=== PATIENT | female | born 1975 | race African-American/Black ===

== ENCOUNTER 2017-08-07 15:18 | Emergency (ER) | payer SELFPAY ==
[2017-08-07] MEDS ORDERED: Ibuprofen 800 MG TAB ONE (15:56)
== END 2017-08-07 16:49 | disposition home or self-care (01) ==
LOC: NAV ERS 15:18
DX: B34.9 Viral infection, unspecified (principal); J45.909 Unspecified asthma, uncomplicated
CPT/HCPCS: 87804; 99283

== ENCOUNTER 2017-09-11 17:54 | Emergency (ER) | payer SELFPAY | END 2017-09-11 18:12 | disposition home or self-care (01) | LOC: NAV ERS 17:54 | DX: H65.01 Acute serous otitis media, right ear (principal); J45.909 Unspecified asthma, uncomplicated | CPT/HCPCS: 99283 ==

== ENCOUNTER 2018-10-08 11:11 | Emergency (ER) | payer SELFPAY ==
[2018-10-08] MEDS ORDERED: Ketorolac Tromethamine 60 MG/2 ML VIAL ONE (11:56)
[2018-10-08] MEDS ORDERED: methylPREDNISolone Sod Succ/PF 125 MG/2 ML VIAL ONE (11:56)
== END 2018-10-08 12:20 | disposition home or self-care (01) ==
LOC: NAV ERS 11:11
DX: M54.42 Lumbago with sciatica, left side (principal); J45.909 Unspecified asthma, uncomplicated
CPT/HCPCS: 96372; J1885; J2930

== ENCOUNTER 2018-12-27 11:17 | Emergency (ER) | payer SELFPAY ==
[2018-12-27] MEDS ORDERED: Fluorescein Opthalmic Strip ONE (11:28)
== END 2018-12-27 11:45 | disposition home or self-care (01) ==
LOC: NAV ERS 11:17
DX: H10.9 Unspecified conjunctivitis (principal); J45.909 Unspecified asthma, uncomplicated
CPT/HCPCS: 99283

== ENCOUNTER 2019-10-23 12:16 | Emergency (ER) | payer SELFPAY ==
[2019-10-23 13:11] LABS: #Basophils 0.1 thou/uL (0.0-0.2); #Eosinphils 0.1 thou/uL (0.0-0.7); #Lymphocytes 2.1 thou/uL (1.20-3.40); #Monocytes 0.4 thou/uL (0.11-0.59); #Neutrophils 3.4 thou/uL (1.40-6.50); %Eosinophils 1.1 % (0.0-10.0); %Monocytes 6.3 % (0.0-10.0); %Neutrophils 55.7 % (42.0-75.0); Hemoglobin 12.3 g/dL (12.0-16.0); Mean Corpuscular HGB CONC 31.4 g/dL (32.0-36.0); Mean Corpuscular Hemoglobin 29.2 pg (27.0-31.0); Mean Platelet Volume 7.3 fL (7.4-10.4); Platelet Count 269 thou/uL (130-400); RBC Distribution Width 12.4 % (11.5-14.5); Red Blood Cell (RBC) Count 4.21 mill/uL (4.20-5.40)
[2019-10-23 13:25] LABS: ALT (SGPT) 13 U/L (8-55); AST (SGOT) 12 U/L (5-34); Albumin 3.7 g/dL (3.5-5.0); Alkaline Phosphatase 76 U/L (40-110); Anion Gap 14 mmol/L (10-20); BUN (Urea Nitrogen) 15 mg/dL (7.0-18.7); Bilirubin, Total 0.2 mg/dL (0.2-1.2); Calc. Creatinine Clearance 0 mL/min (70-130); Calcium 9.5 mg/dL (7.8-10.44); Carbon Dioxide 22 mmol/L (22-29); Chloride 106 mmol/L (98-107); Estimated GFR-MDRD 62; Globulin 3.9 g/dL (2.4-3.5); Glucose 405 mg/dL (70-105); Potassium 4.4 mmol/L (3.5-5.1); Protein, Total 7.6 g/dL (6.0-8.3); Sodium 138 mmol/L (136-145)
== END 2019-10-23 14:00 | disposition home or self-care (01) ==
LOC: NAV ERS 12:16
DX: I10 Essential (primary) hypertension (principal); R51 Headache; E11.65 Type 2 diabetes mellitus with hyperglycemia; M79.602 Pain in left arm; J45.909 Unspecified asthma, uncomplicated
CPT/HCPCS: 36415; 80053; 84484; 85025; 93005

== ENCOUNTER 2019-12-16 16:30 | Emergency (ER) | payer OTHER, SELFPAY ==
[2019-12-17 13:25] LABS: SARS-CoV-2 MS2 Positive; SARS-CoV-2 N Gene Positive; SARS-CoV-2 S Gene Positive; SARS-CoV-2 orf1ab Positive
== END 2019-12-16 17:31 | disposition home or self-care (01) ==
LOC: NAV ERS 16:30
DX: U07.1 COVID-19 (principal); E11.9 Type 2 diabetes mellitus without complications; I10 Essential (primary) hypertension; Z79.899 Other long term (current) drug therapy; Z79.84 Long term (current) use of oral hypoglycemic drugs
CPT/HCPCS: 87635; 99283; U0003

== ENCOUNTER 2021-11-21 14:03 | Emergency (ER) | payer MEDICAID, OTHER, SELFPAY | END 2021-11-21 14:57 | disposition home or self-care (01) | LOC: NAV ERS 14:03 | DX: J06.9 Acute upper respiratory infection, unspecified (principal); H69.81 Other specified disorders of Eustachian tube, right ear; H60.91 Unspecified otitis externa, right ear; R42 Dizziness and giddiness; R29.700 NIHSS score 0; E11.9 Type 2 diabetes mellitus without complications; I10 Essential (primary) hypertension | CPT/HCPCS: 99282 ==

== ENCOUNTER 2021-12-15 11:59 | Emergency (ER) | payer MEDICAID, SELFPAY ==
[2021-12-15 12:47] LABS: Bilirubin Negative (Negative); Blood, Urine Moderate (Negative); Clarity Cloudy (Clear); Glucose, Urine (Dipstick) >=1000 mg/dL (Negative); Ketone, Urine Negative (Negative); Leukocyte Trace (Negative); Nitrite Negative (Negative); Protein, Urine (Dipstick) Negative (Neg-Trace); Specific Gravity, Urine 1.025 (1.005-1.030); Urobilinogen 0.2 mg/dL (Less than 2)
[2021-12-15 12:53] LABS: Bacteria/HPF 1+ HPF (None Seen); RBC/HPF 0-3 HPF (0-3)
[2021-12-15 12:54] LABS: Other Microscopic Description 1+ POWDER CRYSTALS; Transitional Epithelial 0-3 HPF (None Seen)
[2021-12-15 13:15] LABS: Pregnancy Test - Urine (BHCG) Negative (Negative); Pregu Control Background? CLEAR/WHITE (CLR/WHITE); Pregu Control Bar Appear? YES (CONTROL BAR); Specific Gravity 1.025 (1.002-1.036)
== END 2021-12-15 13:29 | disposition home or self-care (01) ==
LOC: NAV ERS 11:59
DX: N30.00 Acute cystitis without hematuria (principal); E11.65 Type 2 diabetes mellitus with hyperglycemia; I10 Essential (primary) hypertension
CPT/HCPCS: 36416; 81003; 81015; 81025; 87086; 99283

== ENCOUNTER 2022-05-01 22:03 | Emergency (ER) | payer SELFPAY ==
[2022-05-01] MEDS ORDERED: Lidocaine 1% (PF) 30 ML VIAL ONE (22:15)
[2022-05-01] MEDS ORDERED: Ibuprofen 800 MG TAB ONE (22:23)
[2022-05-01] MEDS ORDERED: Sulfameth/Trimethoprim DS 800-160mg TAB ONE (22:23)
== END 2022-05-01 22:27 | disposition home or self-care (01) ==
LOC: NAV ERS 22:03
DX: L02.416 Cutaneous abscess of left lower limb (principal); E11.9 Type 2 diabetes mellitus without complications; I10 Essential (primary) hypertension
CPT/HCPCS: 10060; 87070; 87077; 87186; 87205; J2001

== ENCOUNTER 2022-08-25 12:35 | Emergency (ER) | payer SELFPAY ==
[2022-08-25 13:10] LABS: Bilirubin Negative (Negative); Blood, Urine Large (Negative); Clarity Slightly Cloudy (Clear); Glucose, Urine (Dipstick) >=1000 mg/dL (Negative); Ketone, Urine 40 mg/dL (Negative); Leukocyte Small (Negative); Nitrite Negative (Negative); Protein, Urine (Dipstick) Trace mg/dL (Neg-Trace); Urobilinogen 0.2 mg/dL (Less than 2); pH, Urine 5.5 (5.0-9.0)
[2022-08-25 13:16] LABS: Bacteria/HPF 2+ HPF (None Seen); Yeast-Budding 1+ HPF (None Seen)
[2022-08-25 14:01] LABS: Wet Prep Clue Cells Clue Cells Absent (None Seen); Wet Prep Trichomonas Trichomonas Absent (None Seen)
[2022-08-25] MEDS ORDERED: Acyclovir 400 mg Tablet ONE (14:02)
[2022-08-25] MEDS ORDERED: Fluconazole 100 MG TAB ONE (14:05)
[2022-08-25] MEDS ORDERED: Sulfameth/Trimethoprim DS 800-160mg TAB ONE (14:05)
[2022-08-27 09:02] LABS: GC by PCR *Indeterminate (NotDetected)
[2022-08-27 09:03] LABS: Chlamydia by PCR *Indeterminate (NotDetected)
== END 2022-08-25 14:22 | disposition home or self-care (01) ==
LOC: NAV ERS 12:35
DX: N76.2 Acute vulvitis (principal); B00.9 Herpesviral infection, unspecified; B37.31 Acute candidiasis of vulva and vagina; E11.9 Type 2 diabetes mellitus without complications; I10 Essential (primary) hypertension; Z79.84 Long term (current) use of oral hypoglycemic drugs
CPT/HCPCS: 81003; 81015; 87210; 87480; 87491; 87510; 87591; 87660; 99283

== ENCOUNTER 2022-09-25 19:14 | Emergency (ER) | payer SELFPAY ==
[2022-09-25] MEDS ORDERED: methylPREDNISolone Sod Succ/PF 125 MG/2 ML VIAL ONE (19:44)
[2022-09-25] MEDS ORDERED: Ipratropium/Albuterol 3 ML NEB ONE (19:44)
[2022-09-25] MEDS ORDERED: Azithromycin 250 MG TAB ONE (19:44)
== END 2022-09-25 20:38 | disposition home or self-care (01) ==
LOC: NAV ERS 19:14
DX: J06.9 Acute upper respiratory infection, unspecified (principal); E78.5 Hyperlipidemia, unspecified; I10 Essential (primary) hypertension; E11.9 Type 2 diabetes mellitus without complications; J45.909 Unspecified asthma, uncomplicated; Z79.84 Long term (current) use of oral hypoglycemic drugs
CPT/HCPCS: 71045; 87804; 96372; J2930; J7620

== ENCOUNTER 2022-12-16 20:21 | Emergency (ER) | payer OTHER ==
[2022-12-16] MEDS ORDERED: Ibuprofen 800 MG TAB ONE (21:24)
== END 2022-12-16 21:25 | disposition home or self-care (01) ==
LOC: NAV ERS 20:21
DX: M54.50 Low back pain, unspecified (principal); M54.2 Cervicalgia; M54.6 Pain in thoracic spine; I10 Essential (primary) hypertension; E11.9 Type 2 diabetes mellitus without complications; V43.62XA Car passenger injured in collision with other type car in traffic accident, initial encounter
CPT/HCPCS: 99284

== ENCOUNTER 2023-04-12 10:43 | Emergency (ER) | payer OTHER ==
[2023-04-12] MEDS ORDERED: Ibuprofen 800 MG TAB ONE (11:17)
[2023-04-12 11:20] LABS: Bilirubin Negative (Negative); Blood, Urine Negative (Negative); Glucose, Urine (Dipstick) >=1000 mg/dL (Negative); Ketone, Urine 15 mg/dL (Negative); Leukocyte Negative (Negative); Nitrite Negative (Negative); Protein, Urine (Dipstick) Negative (Neg-Trace)
[2023-04-12 11:27] LABS: Clarity Hazy (Clear)
[2023-04-12 11:28] LABS: Pregnancy Test - Urine (BHCG) Negative (Negative); Pregu Control Background? CLEAR/WHITE (CLR/WHITE); Pregu Control Bar Appear? YES (CONTROL BAR)
[2023-04-12 11:36] LABS: CAUTI Indications for Culture Dysuria,urgency,freq; Squamous Epithelial 0-3 HPF (0-3); WBC/HPF 0-3 HPF (0-3)
[2023-04-12 11:37] LABS: Urine Culture Reflex No No
== END 2023-04-12 11:53 | disposition home or self-care (01) ==
LOC: NAV ERS 10:43
DX: B37.31 Acute candidiasis of vulva and vagina (principal); I10 Essential (primary) hypertension; E11.9 Type 2 diabetes mellitus without complications
CPT/HCPCS: 81001; 81025; 99283

== ENCOUNTER 2023-11-23 19:03 | Emergency (ER) | payer OTHER ==
[2023-11-23] MEDS ORDERED: Ondansetron PF 4 MG/2 ML Vial ONE (19:27)
[2023-11-23] MEDS ORDERED: Sodium Chloride 0.9% 1,000 ML ONE (19:27)
[2023-11-23 19:52] LABS: Hematocrit 41.7 % (36.0-47.0); Hemoglobin 13.1 g/dL (12.0-16.0); Lymphocytes 9 % (21-51); MDiff Complete? YES; Mean Corpuscular HGB CONC 31.5 g/dL (32.0-36.0); Mean Corpuscular Hemoglobin 27.9 pg (27.0-31.0); Mean Corpuscular Volume 88.7 fl (78.0-98.0); Mean Platelet Volume 6.7 fL (7.4-10.4); Monocytes 6 % (0-10); Neutrophil 85 % (42-75); Platelet Adequacy Comment Appears Adequate; Platelet Count 245 10x3/uL (130-400); RBC Distribution Width 12.2 % (11.5-14.5); White Blood Cell (WBC) Count 7.1 10x3/uL (4.8-10.8)
[2023-11-23 19:53] LABS: ALT (SGPT) 12 U/L (8-55); AST (SGOT) 15 U/L (5-34); Albumin 3.9 g/dL (3.5-5.0); Alkaline Phosphatase 114 U/L (40-110); Anion Gap 15 mmol/L (10-20); BUN (Urea Nitrogen) 11 mg/dL (7.0-18.7); Bilirubin, Total 0.7 mg/dL (0.2-1.2); Calc. Creatinine Clearance 0 mL/min (70-130); Calcium 9.6 mg/dL (7.8-10.44); Carbon Dioxide 26 mmol/L (22-29); Chloride 100 mmol/L (98-107); Estimated GFR 88; Glucose 212 mg/dL (70-105); Lipase 62 U/L (8-78); Potassium 3.4 mmol/L (3.5-5.1); Protein, Total 7.9 g/dL (6.0-8.3); Sodium 138 mmol/L (136-145)
[2023-11-23 20:21] LABS: Bilirubin Small (Negative); Blood, Urine Trace (Negative); Clarity Clear (Clear); Glucose, Urine (Dipstick) 500 mg/dL (Negative); Ketone, Urine 40 mg/dL (Negative); Leukocyte Negative (Negative); Nitrite Negative (Negative); Protein, Urine (Dipstick) 100 mg/dL (Neg-Trace)
[2023-11-23 20:23] LABS: Urine Culture Reflex No No
[2023-11-23 20:35] LABS: Bacteria/HPF 1+ HPF (None Seen); CAUTI Indications for Culture Fever or rigors; Squamous Epithelial 0-3 HPF (0-3); WBC/HPF 0-3 HPF (0-3); Yeast-Budding 1+ HPF (None Seen)
== END 2023-11-23 20:30 | disposition home or self-care (01) ==
LOC: NAV ERS 19:03
DX: R11.2 Nausea with vomiting, unspecified (principal); E11.9 Type 2 diabetes mellitus without complications; I10 Essential (primary) hypertension
CPT/HCPCS: 80053; 81001; 83605; 83690; 85025; 96361; 96374; J2405; J7050

== ENCOUNTER 2025-04-13 11:05 | Emergency (ER) | payer OTHER, SELFPAY ==
[2025-04-13] MEDS ORDERED: Ibuprofen 800 MG TAB ONE (11:24)
== END 2025-04-13 11:45 | disposition home or self-care (01) ==
LOC: NAV ERS 11:05
DX: B37.2 Candidiasis of skin and nail (principal); E11.9 Type 2 diabetes mellitus without complications; I10 Essential (primary) hypertension
CPT/HCPCS: 99282